=== PATIENT | male | born 1980 | race Caucasian/White ===

== ENCOUNTER 2016-11-06 12:26 | Emergency (ER) | payer OTHER ==
[~2016-11-06] VITALS: Ht 188 cm; Wt 99.7 kg
[2016-11-06 12:27] VITALS: TEMP 36.3; Ht 188 cm; Wt 99.7 kg
[2016-11-06] MEDS ORDERED: SODIUM CHLORIDE 0.9% 1000ML 1,000 ML IV STA (12:40)
--- NOTE | 2016-11-06 12:43 | EMERGENCY ROOM VISIT NOTE ---
History First contact with patient: 12:34 Chief Complaint: FLANK PAIN Stated Complaint: L FLANK PAIN, NAUSEA History of Present Illness The patient is a 36 year old male who presents to the Emergency Room with complaints of left flank pain. The patient states that he had a dull ache in the left flank 3 days ago that lasted approximately one hour. He states that today approximate 2 hours ago he developed a more severe and constant left flank pain. It is nonradiating. He has had some associated nausea. He rates his discomfort an 8/10. He denies any fevers or chills. He denies any abdominal pain. He denies vomiting or diarrhea. Review of Systems A 10 system review of systems was completed with positives and pertinent negatives listed in the HPI. Past Medical/Surgical History Patient denies Social History Smoking Status: Never Smoker Housing Status: lives with family Occupation Status: employed Current/Historical Medications Scheduled Ondasetron Odt (Zofran Odt), 4 MG SL Q6H Tamsulosin Hcl (Flomax), 0.4 MG PO BID Scheduled PRN Ibuprofen (Advil), 400 MG PO UD PRN for Pain Ketorolac Tromethamine (Toradol), 1 TAB PO Q6H PRN for Pain Oxycodone Ir (Roxicodone Ir), 1-2 TAB PO Q4H PRN for Pain Allergies Coded Allergies: No Known Allergies (Unverified , 11/06/16) Physical Exam Vital Signs Date Time Temp Pulse Resp B/P (MAP) Pulse Ox O2 Delivery O2 Flow Rate FiO2 11/06/16 14:26 53 18 118/76 96 Room Air 11/06/16 13:36 51 18 123/81 98 Room Air 11/06/16 12:27 36.3 54 18 136/85 98 Room Air Physical Exam VITALS: Vitals are noted on the nurse's note and reviewed by myself. Vital signs stable. GENERAL: This is a 36-year-old male, in no acute distress, nondiaphoretic, well- developed well-nourished. SKIN: The skin was without rashes, erythema, edema, or bruising. There is no tenting of the skin. Capillary reflex less than 2 seconds. HEAD: Normocephalic atraumatic. EARS: The external ears are normal in appearance EYES: Pupils equal round and reactive to light and accommodation. Conjunctivae without injection, sclerae without icterus. Extraocular movements intact. NOSE: Patent, turbinates without inflammation or discharge. MOUTH: Mucous membranes moist. Tonsils are not enlarged. Pharynx without erythema or exudate. Uvula midline. Airway patent. Tongue does not deviate. NECK: Supple without nuchal rigidity. No JVD. HEART: Regular rate and rhythm without murmurs gallops or rubs. LUNGS: Clear to auscultation bilaterally without wheezes, rales or rhonchi. No retractions or accessory muscle use. ABDOMEN: Positive bowel sounds x 4. Soft, nontender, without masses or organomegaly. There is no CVA tenderness. MUSCULOSKELETAL: No muscle atrophy, erythema, or edema noted. Full range of motion in all extremities. No tenderness to palpation. Normal gait. Strength 5/5 throughout. NEURO: Patient was alert and oriented to person place and time. No focal neurological deficits. Medical Decision & Procedures ER Provider Diagnostic Interpretation: CT SCAN OF THE ABDOMEN AND PELVIS WITHOUT IV CONTRAST CLINICAL HISTORY: Left flank pain. COMPARISON STUDY: No priors. TECHNIQUE: CT scan of the abdomen and pelvis is performed from the lung bases to the proximal femora. Images are reviewed in the axial, sagittal, and coronal planes. IV contrast was not administered for this examination as per the front clinician. Automated dose control exposure was utilized. CT DOSE: 1097.89 mGy.cm FINDINGS: Lung bases: The heart is normal in size and without pericardial effusion. The lung bases are clear. Liver: The unenhanced liver is normal in size, contour, and attenuation. There is no intrahepatic biliary ductal dilatation. Gallbladder: Unremarkable. Spleen: Normal in size and attenuation. Pancreas: Unremarkable. Adrenal glands: Unremarkable. Kidneys: The unenhanced kidneys are normal in size. There is a linear obstructing calculus versus 2 or more adjacent obstructing calculi seen in the left mid ureter at the level of L4 on axial image #210 and measure up to 11 mm in aggregate dimension. This causes mild left-sided hydroureteronephrosis. There are least 6 additional nonobstructing left calculi which measure up to 7 mm. A 5 mm nonobstructing calculus is seen in the interpolar right kidney. There is no right-sided hydronephrosis. There is no evidence of contour deforming renal mass lesion. Abdominal vasculature: The abdominal aorta is normal in course and caliber. Bowel: The small bowel and colon are normal in course and caliber. The appendix is well-visualized and normal. Peritoneum: There is no intraperitoneal free air or abdominal ascites. Lymphadenopathy: None. Pelvic viscera: The bladder, prostate, and seminal vesicles are normal as visualized. Skeletal structures: No lytic or blastic lesions are seen. IMPRESSION: 1. There is a linear obstructing calculus versus 2 are more adjacent obstructing calculus in the mid left ureter measuring up to 11 mm in aggregate dimension. This causes mild left hydroureteronephrosis. 2. Additional bilateral nonobstructing renal calculi as above, greater in the left kidney. Laboratory Results 11/06/16 12:37 Red Blood Count 5.13, Mean Corpuscular Volume 89.3, Mean Corpuscular Hemoglobin 31.4, Mean Corpuscular Hemoglobin Concent 35.2, Mean Platelet Volume 11.0, Neutrophils (%) (Auto) 43.4, Lymphocytes (%) (Auto) 41.6, Monocytes (%) (Auto) 10.7, Eosinophils (%) (Auto) 3.6, Basophils (%) (Auto) 0.6, Neutrophils # (Auto ) 3.14, Lymphocytes # (Auto) 3.00, Monocytes # (Auto) 0.77, Eosinophils # (Auto ) 0.26, Basophils # (Auto) 0.04 11/06/16 12:37 Test 11/06/16 12:37 11/06/16 12:50 White Blood Count 7.22 K/uL (4.8-10.8) Red Blood Count 5.13 M/uL (4.7-6.1) Hemoglobin 16.1 g/dL (14.0-18.0) Hematocrit 45.8 % (42-52) Mean Corpuscular Volume 89.3 fL (80-100) Mean Corpuscular Hemoglobin 31.4 pg (25-34) Mean Corpuscular Hemoglobin Concent 35.2 g/dl (32-36) Platelet Count 191 K/uL (130-400) Mean Platelet Volume 11.0 fL (7.4-10.4) Neutrophils (%) (Auto) 43.4 % Lymphocytes (%) (Auto) 41.6 % Monocytes (%) (Auto) 10.7 % Eosinophils (%) (Auto) 3.6 % Basophils (%) (Auto) 0.6 % Neutrophils # (Auto) 3.14 K/uL (1.4-6.5) Lymphocytes # (Auto) 3.00 K/uL (1.2-3.4) Monocytes # (Auto) 0.77 K/uL (0.11-0.59) Eosinophils # (Auto) 0.26 K/uL (0-0.5) Basophils # (Auto) 0.04 K/uL (0-0.2) RDW Standard Deviation 38.7 fL (36.4-46.3) RDW Coefficient of Variation 11.9 % (11.5-14.5) Immature Granulocyte % (Auto) 0.1 % Immature Granulocyte # (Auto) 0.01 K/uL (0.00-0.02) Anion Gap 6.0 mmol/L (3-11) Est Creatinine Clear Calc Drug Dose 90.3 ml/min Estimated GFR () 73.4 Estimated GFR (Non- 63.3 BUN/Creatinine Ratio 11.6 (10-20) Calcium Level 8.7 mg/dl (8.5-10.1) Total Bilirubin 0.6 mg/dl (0.2-1) Aspartate Amino Transf (AST/SGOT) 24 U/L (15-37) Alanine Aminotransferase (ALT/SGPT) 32 U/L (12-78) Alkaline Phosphatase 68 U/L (45-117) Total Protein 6.8 gm/dl (6.4-8.2) Albumin 4.0 gm/dl (3.4-5.0) Globulin 2.8 gm/dl (2.5-4.0) Albumin/Globulin Ratio 1.4 (0.9-2) Urine Color DK YELLOW Urine Appearance CLOUDY (CLEAR) Urine pH 6.0 (4.5-7.5) Urine Specific [place] 1.024 (1.000-1.030) Urine Protein 1+ (NEG) Urine Glucose (UA) NEG (NEG) Urine Ketones TRACE (NEG) Urine Occult Blood 3+ (NEG) Urine Nitrite NEG (NEG) Urine Bilirubin NEG (NEG) Urine Urobilinogen NEG (NEG) Urine Leukocyte Esterase TRACE (NEG) Urine WBC (Auto) 10-30 /hpf (0-5) Urine RBC (Auto) >30 /hpf (0-4) Urine Hyaline Casts (Auto) 1-5 /lpf (0-5) Urine Epithelial Cells (Auto) 20-30 /lpf (0-5) Urine Bacteria (Auto) NEG (NEG) Medications Administered Medications (Trade) Dose Ordered Sig/Aureliano Route Start Time Stop Time Status Last Admin Dose Admin Sodium Chloride 1,000 ml @ 999 mls/hr Q1H1M STAT IV 11/06/16 12:40 11/06/16 13:40 DC 11/06/16 12:49 999 MLS/HR Morphine Sulfate (MoRPHine SULFATE INJ) 4 mg NOW STAT IV 11/06/16 12:52 11/06/16 12:53 DC 11/06/16 13:04 4 MG Ondansetron HCl (Zofran Inj) 4 mg NOW STAT IV 11/06/16 12:52 11/06/16 12:53 DC 11/06/16 13:04 4 MG Ketorolac Tromethamine (Toradol Inj) 30 mg NOW STAT IV 11/06/16 13:49 11/06/16 13:50 DC 11/06/16 13:59 30 MG ED Course The patient was seen and examined. Previous visits were reviewed. The patient does not have a fever or leukocytosis. He does not have any significant electrolyte abnormality. Urinalysis suggests contamination and a culture is pending. CT imaging is as above. There are likely to mid ureteral left-sided stones measuring a total of 11 mm. There are multiple stones in the left kidney and a stone in the right kidney. The patient was hydrated with normal saline He was given 4 mg IV morphine and 4 mg IV Zofran with mild improvement in his pain The RN did ask for another dose of medication and 4 mg IV morphine were ordered. He was then given 30 mg IV Toradol I discussed the case with the on-call urologist, Dr. Lang. He was able to speak with the patient as they are associates. The patient is a radiologist locally. They decided that the course of action at this time would be for the patient to go home. The patient was offered admission but declined. The patient will be sent home with prescriptions for Flomax 0.4 mg by mouth twice a day, oral Toradol, pain medication. Additionally, he'll be given a prescription for Zofran. He is encouraged to push oral hydration. The patient should return to the ER with any intractable pain, worsening symptoms, fevers. The patient was also seen and examined by who agrees with the assessment and treatment plan. Medication Reconciliation: I attest that I have personally reviewed the patient' s current medication list. Blood pressure screening: The patient was found to have normal blood pressure on screening and does not require follow-up Medical Decision DIFFERENTIAL DIAGNOSIS: Hepatitis, cholecystitis, cholangitis, biliary colic, pancreatitis, pneumonia, subdiaphragmatic abscess, appendicitis, inguinal hernia , nephrolithiasis, inflammatory bowel disease, mesenteric adenitis, peptic ulcer disease, GERD, gastritis, pancreatitis, myocardial infarction, pericarditis, ruptured aortic aneurysm, appendicitis, gastroenteritis, bowel obstruction, splenic infarct, diverticulitis, mesenteric ischemia, metabolic, peritonitis, among others. [place] Drug Monitoring Program Search Results: patient reviewed within database, no issues identified Impression Primary Impression: Kidney stone Departure Information Dispostion Home / Self-Care Condition GOOD Prescriptions Ondasetron Odt (ZOFRAN ODT) 4 Mg Tab 4 MG SL Q6H for Nausea, #20 TAB Prov: Hollie Tineo PA-C 11/06/16 Ketorolac Tromethamine (TORADOL) 10 Mg Tab 1 TAB PO Q6H Y for Pain for 5 Days, #20 TAB Prov: Hollie Tineo PA-C 11/06/16 Tamsulosin Hcl (FLOMAX) 0.4 Mg Cap 0.4 MG PO BID for 7 Days, #14 CAP Prov: Hollie Tineo PA-C 11/06/16 Oxycodone Ir (Roxicodone Ir) 5 Mg Tab 1-2 TAB PO Q4H Y for Pain, #36 TAB For Initial Treatment Prov: Hollie Tineo PA-C 11/06/16 Referrals No Doctor, Assigned (PCP) Vinny Lang MD Patient Instructions Kidney Stones - [facility], [facility] Additional Instructions Toradol as prescribed, as needed for moderate pain Oxy IR 1-2 tablets every 4-6 hrs as needed for worse pain. No driving or alcohol use with Oxy IR. Flomax twice daily to help dilate the ureters Zofran as prescribed, as needed for nausea and vomiting Follow-up with urology for further evaluation and management Return to the emergency department with fevers, intractable pain or generalized worsening symptoms
[2016-11-06 12:47] LABS: BASO % 0.6 %; BASO ABS # 0.04 K/uL (0-0.2); COMPLETE YES; EOS % 3.6 %; HEMATOCRIT 45.8 % (42-52); IG% 0.1 %; LYMPH % 41.6 %; MEAN CELL VOLUME 89.3 fL (80-100); MEAN CORPUSCULAR HEMOGLOBIN 31.4 pg (25-34); MEAN CORPUSCULAR HGB CONC 35.2 g/dl (32-36); MONO % 10.7 %; NEUT % 43.4 %; PLATELET COUNT 191 K/uL (130-400); RED BLOOD COUNT 5.13 M/uL (4.7-6.1); WHITE BLOOD COUNT 7.22 K/uL (4.8-10.8)
[2016-11-06] MEDS ORDERED: ONDANSETRON INJ 2 MG/ML 2 ML VIAL IV STA (12:52)
[2016-11-06] MEDS ORDERED: MoRPHine SULFATE 4 MG/ML 1 ML CARP\\VIAL IV STA ×2 (12:52→13:42)
[2016-11-06] MEDS ORDERED: IBUP-1050 PO (12:52)
[2016-11-06 13:08] LABS: BUN/CREATININE RATIO 11.6 (10-20); CALCIUM 8.7 mg/dl (8.5-10.1); CREATININE 1.4 mg/dl (0.60-1.40); POTASSIUM 3.8 mmol/L (3.5-5.1)
--- NOTE | 2016-11-06 13:14 | DIAGNOSTIC IMAGING REPORT ---
CT SCAN OF THE ABDOMEN AND PELVIS WITHOUT IV CONTRAST CLINICAL HISTORY: Left flank pain. COMPARISON STUDY: No priors. TECHNIQUE: CT scan of the abdomen and pelvis is performed from the lung bases to the proximal femora. Images are reviewed in the axial, sagittal, and coronal planes. IV contrast was not administered for this examination as per the front clinician. Automated dose control exposure was utilized. CT DOSE: 1097.89 mGy.cm FINDINGS: Lung bases: The heart is normal in size and without pericardial effusion. The lung bases are clear. Liver: The unenhanced liver is normal in size, contour, and attenuation. There is no intrahepatic biliary ductal dilatation. Gallbladder: Unremarkable. Spleen: Normal in size and attenuation. Pancreas: Unremarkable. Adrenal glands: Unremarkable. Kidneys: The unenhanced kidneys are normal in size. There is a linear obstructing calculus versus 2 or more adjacent obstructing calculi seen in the left mid ureter at the level of L4 on axial image #210 and measure up to 11 mm in aggregate dimension. This causes mild left-sided hydroureteronephrosis. There are least 6 additional nonobstructing left calculi which measure up to 7 mm. A 5 mm nonobstructing calculus is seen in the interpolar right kidney. There is no right-sided hydronephrosis. There is no evidence of contour deforming renal mass lesion. Abdominal vasculature: The abdominal aorta is normal in course and caliber. Bowel: The small bowel and colon are normal in course and caliber. The appendix is well-visualized and normal. Peritoneum: There is no intraperitoneal free air or abdominal ascites. Lymphadenopathy: None. Pelvic viscera: The bladder, prostate, and seminal vesicles are normal as visualized. Skeletal structures: No lytic or blastic lesions are seen. IMPRESSION: 1. There is a linear obstructing calculus versus 2 are more adjacent obstructing calculus in the mid left ureter measuring up to 11 mm in aggregate dimension. This causes mild left hydroureteronephrosis. 2. Additional bilateral nonobstructing renal calculi as above, greater in the left kidney. Electronically signed by: Miko Savage M.D. 11/06/2016 1:13 PM Dictated Date/Time: 11/06/2016 1:05 PM
[2016-11-06 13:28] LABS: ALB/GLOB RATIO 1.4 (0.9-2)
[2016-11-06 13:30] LABS: URINE APPEARANCE CLOUDY (CLEAR); URINE BILIRUBIN NEG (NEG); URINE COLOR DK YELLOW; URINE EPITHELIAL CELL AUTO 20-30 /lpf (0-5); URINE NITRITE NEG (NEG); URINE SPECIFIC GRAVITY 1.024 (1.000-1.030); UROBILINOGEN NEG (NEG); ZZUR CULT IF INDIC CLEAN CATCH YES
[2016-11-06 13:31] LABS: MANUAL MICROSCOPIC REQUIRED? NO; REVIEW REQ? NO
--- NOTE | 2016-11-06 13:31 | EMERGENCY ROOM VISIT NOTE ---
ED Visit Note First contact with patient: 12:34 36-year-old male with left sided abdominal/flank pain was fully evaluated by Jessica Tineo PA-C. Please see her note. I also independently evaluated the patient. CT reveals a 11 mm obstructing stone versus 2 contiguous stones. The patient also has additional ureteral nonobstructing calculi. Urology was consulted.
[2016-11-06] MEDS ORDERED: KETOROLAC TROMETHAMINE 30 MG/ML VIAL IV STA (13:49)
[2016-11-06 14:26] VITALS: BP 118/76; PULSE 53; O2SAT 96
[2016-11-06] MEDS ORDERED: KETO10TA PO (14:40)
[2016-11-06] MEDS ORDERED: OXYC1TAB3 PO (14:40)
[2016-11-06] MEDS ORDERED: ONDA4TAB10 SL (14:40)
[2016-11-06] MEDS ORDERED: TAMS0.4C38 PO (14:40)
== END 2016-11-06 14:55 | disposition home or self-care (01) ==
LOC: C.EDB 12:26
DX: N20.0 Calculus of kidney (principal); R10.9 Unspecified abdominal pain; R11.0 Nausea